=== PATIENT | male | born 1975 | race Caucasian/White ===

== ENCOUNTER 2020-06-29 15:17 | Emergency (ER) | payer SELFPAY ==
[~2020-06-29] VITALS: Ht 172.7 cm; Wt 62.0 kg
[2020-06-29 15:24] VITALS: BP 130/74
[2020-06-29] MEDS ORDERED: IBUPROFEN 600MG TABLET PO ONE (16:00)
== END 2020-06-29 17:27 | disposition home or self-care (01) ==
LOC: ER 15:17
DX: S80.12XA Contusion of left lower leg, initial encounter (principal); X58.XXXA Exposure to other specified factors, initial encounter; Y93.89 Activity, other specified; Y92.89 Other specified places as the place of occurrence of the external cause; Y99.8 Other external cause status
CPT/HCPCS: 73590; 99283

== ENCOUNTER 2023-09-29 17:36 | Emergency (ER) | payer SELFPAY ==
[~2023-09-29] VITALS: Ht 167.6 cm; Wt 70.0 kg
[2023-09-29 17:38] VITALS: TEMP 98.2; O2SAT 99
[2023-09-29] MEDS ORDERED: IBUP-2028 MT (19:34)
[2023-09-29 20:37] VITALS: BP 150/72; PULSE 88; RESP 15
== END 2023-09-29 20:38 | disposition home or self-care (01) ==
LOC: ER 17:36
DX: S02.2XXA Fracture of nasal bones, initial encounter for closed fracture (principal); Y08.89XA Assault by other specified means, initial encounter; Y93.89 Activity, other specified; Y92.89 Other specified places as the place of occurrence of the external cause; Y99.8 Other external cause status
CPT/HCPCS: 70450; 70486; 99284; Z7610